=== PATIENT | female | born 1985 | race Caucasian/White ===

== ENCOUNTER 2021-03-25 14:03 | Emergency (ER) | payer SELFPAY ==
[2021-03-25 14:05] VITALS: BP 119/91; PULSE 89; RESP 16; TEMP 36.6; O2SAT 98; BMI 19.9
--- NOTE | 2021-03-25 14:26 | NURSING ---
CALLED CRISIS FOR THEM TO TALK TO PATIENT
--- NOTE | 2021-03-25 14:26 | EX.ED.VIS.PS ---
HPI HPI - Psych History of Present Illness Chief Complaint: Mental Health Narrative Narrative: 36-year-old female presenting with anxiety, paranoia, and description of feeling of despair. Patient states this has been ongoing for about a year. She states she has family here in [place] but has been back and forth to [place]. She has not seen a healthcare professional or psychiatric professional. Patient states she has no family or personal history of psychiatric disease. She states that she feels that her friendships are suffering because her friends are doing things behind her back. She feels like they are logging into her phone in her computer and her secretly conspiring against her. Patient states that this has made her very anxious and she feels like she is being followed. Patient states that at times she feels like she wishes she could just and gives a physical description of ingesting pills. She states that she does not currently want at times she feels so scared and paranoid that she wishes she just could. She is seeking mental health. PFSH PFSH Allergy/AdvReac Type Severity Reaction Status Date / Time No Known Allergies Allergy Verified 03/25/21 14:07 Social History Smoking Status: Never smoker ROS ROS ED Constitutional Constitutional ED: Denies chills, fever(s) or subjective Eyes Eyes: Denies blurry vision or change in vision ENT ENT ED: Denies rhinorrhea or sore throat Cardiovascular Cardiovascular: Denies chest pain, palpitations or racing heartbeat Respiratory/Chest Respiratory/Chest: Denies cough, dyspnea or sputum Gastrointestinal Gastrointestinal: Denies abdominal pain, nausea or vomiting Genitourinary Genitourinary ED: Denies dysuria, hematuria or urinary frequency Musculoskeletal Musculoskeletal: Denies arthralgias, back pain, myalgias or neck pain Integumentary Denies abscess or rash Neurologic Neurologic: Denies headache(s) or paresthesias Psychiatric Psychiatric: Reports anxiety, depression, suicidal thoughts and other Details: Paranoia EXAM Physical Exam Const Vital Signs: 03/25/21 14:05 Temperature 97.9 F Temperature Source Temporal Pulse Rate 89 Respiratory Rate 16 Blood Pressure 119/91 H Blood Pressure Mean 100 Pulse Ox 98 Oxygen Delivery Method Room Air Positive well nourished General Appearance ED: NAD; Negative for pallor HEENT Reports moist mucous membranes normocephalic and atraumatic Eyes PERRL and EOMs intact bilaterally General Eye ED: Negative for pale conjunctiva or scleral icterus Resp normal respiratory effort and clear to auscultation bilaterally Cardio Rate: regular rate Rhythm: regular rhythm Extremity normal to inspection General Extremety ED: Yes tenderness Neuro oriented x3, CN's II-XII intact bilaterally and no sensory deficits noted Sensorium / Orientation: alert Motor Exam: strength 5/5 throughout and muscle tone normal throughout Psych Appearance: grossly normal and appropriate Attitude: calm and engaged Activity / Motor Behavior: appropriate eye contact; Negative for psychomotor agitation, psychomotor slowing or fidgetting Speech: normal speech Thought Process: normal thought process Thought Content: suicidality, No homicidality, delusion(s) Delusional Thought Content Details: Positive for paranoid and No hallucination(s) Attention / Concentration: attention grossly intact and concentration grossly intact Memory / Cognition: memory grossly intact and memory grossly impaired Skin General Skin Exam: Negative for jaundice or pallor Lesions: no lesions Rashes: no rashes MDM MDM MDM Narrative Medical decision making narrative: Patient presenting with paranoia, anxiety, some level of suicidal ideation however she is not currently suicidal. Patient states that time she feels that she wishes all with and. Patient did not want a full work-up due to financial issues but was seen by the counseling center who felt that the patient was stable for outpatient follow-up and will follow up with her tomorrow. She was amenable to this. Patient was further counseled by myself and the counseling center that if she has any worsening depression, anxiety, paranoia, suicidal ideation she should return immediately to the ER for repeat evaluation. She acknowledged understanding. Impression: 1. Anxiety 2. Paranoia 3. History of suicidal Discharge Plan Triage Chief Complaint: Mental Health ED Provider: Loi Pichardo Dx/Rx/DC Orders Instructions: ED Anxiety Reaction Primary Care Provider: Care Physician,No Primary Referrals: Counseling,Center [GROUP OF PHYSICIANS] - As soon as possible Care Physician,No Primary [Primary Care Provider] - Disposition Disposition: Home, Self Care
--- NOTE | 2021-03-25 14:55 | NURSING ---
CRISIS IN ER
== END 2021-03-25 15:55 | disposition home or self-care (01) ==
PROVIDERS: Emergency Provider Student in an Organized Health Care Education/Training Program
DX: F41.9 Anxiety disorder, unspecified (principal); F22 Delusional disorders
CPT/HCPCS: 99282

== ENCOUNTER 2021-09-13 11:00 | Outpatient (CLI) | payer MEDICARE, SELFPAY | END 2021-09-13 23:59 | disposition short-term general hospital (02) | LOC: LABSPEC 11:01 | PROVIDERS: Referring Provider Physician Assistant; Visit Provider Physician Assistant | DX: Z20.822 Contact with and (suspected) exposure to COVID-19 (principal) | CPT/HCPCS: 87635; U0003; U0005 ==